=== PATIENT | female | born 1980 | race Caucasian/White ===

== ENCOUNTER → 2016-05-29 | Outpatient (CLI) | payer BC ==
--- NOTE | 2016-05-29 11:26 | US ---
May 29, [address] Jackson, Thank you for allowing us to see your patient regarding AMA. As you know she is a 35 year-old gravid a 1, para 0. Her due date is 10/17/16 which is based on 8 week u/s. Her current gestational age base d on this dating is 19 weeks 6 days. She had normal NIPT. Number of fetuses: 1 Placental location: posterior Cord Insertion: Central presentation: breech Cervix: 3.5 cm MVP: 3.5 cm The adnexa were evaluated. No pathology was seen. Right ovary seen Left ovary not seen Measurements: Biparietal diameter: 46 mm 20 weeks, 0 days Head circumference: 167 mm 19 weeks, 0 days Abdominal circumference: 152 mm 20 weeks, 3 days Femur length: 31 mm 19 weeks, 5 days Humerus length: 35 mm 21 weeks, 6 days Transcerebellar diameter: 21 mm 19 weeks, 6 days Average ultrasound age: 20 weeks, 0 days Estimated weight: 326 gm weight percentile: 54 % ANATOMY Upper extremities: Normal Lower extremities: Normal Supratentorial brain: Normal Lateral ventricle: 4.4 mm Posterior fossa: Normal Cisterna Magna: 4.7 mm Spine: Normal Nuchal fold: Normal Face: Normal nose, lip, profile, alveolar ridge Heart: Normal rate, rhythm, axis, 4 chamber view, LVOT, RVOT, IVS Stomach: Normal Diaphragm Normal Umbilical cord insertion: Normal Right kidney: Normal Left kidney: Normal Bladder: Normal Number of cord vessels: Three. Impression: This is a 35 year-old, 1, para 0 at 19 weeks, 6 days gestation. 1. SIUP with biometry cw ga of 19 weeks. Nl MVP. No anatomic abnormalities noted. 2. AMA - normal NIPT, I reviewed the detection rate and chromosomes for NIPT and the option of amnioc entesis as well. She declined amniocentesis today, understanding the limitations of NIPT and ultrasou nd in detection of aneuploidy and other syndromes. Thank you for allowing me to see your patient. Approximately 15 minutes was spent with the patient a nd 15 was spent discussing her issues. Cindy Yang MD Diagnosis Division of Maternal Medicine Department of Obstetrics and Gynecology [facility]
--- NOTE | 2016-05-29 18:25 | US ---
Detailed Obstetric Ultrasound Indication: Evaluate growth and anatomy. Advanced maternal age. Comparison: Baseline evaluation Dr. Cindy Yang was present during imaging. Findings: Biometry: Average gestational age by ultrasound: 20 weeks with EDC by ultrasound of October 16, 2016. Estimated gestational age by LMP: 19 weeks 6 days with an EDC by LMP of October 18, 2015. Maternal Ovaries: The right ovary is visualized and measures about 1.7 x 3 x 2.3 cm. The left ovary c ould not be positively identified. Number: 1 Presentation: Breech at this time Placental location: Posterior without previa. There is central umbilical cord insertion. Cervix: 3.5 cm from transabdominal measurement after voiding. Amniotic fluid maximum vertical pocket: 3.5 cm Biparietal diameter: 20 weeks, 4.60 cm Head circumference: 19 weeks 3 days, 16.71 cm Abdominal circumference: 20 weeks 3 days, 15.19 cm Femur length: 19 weeks 5 days, 3.12 cm Humerus length: 21 weeks 6 days, 3.45 cm Transcerebellar diameter: 19 weeks 6 days, 2.07 cm Estimated weight is 326 gms ( 12 ounces ). The estimated weight is at the 54th percentile based on LMP. Anatomy Survey: Supratentorial brain: Normal Posterior fossa: Normal Spine: Normal Nose and lips: Normal Profile: Normal Heart: Four chamber heart with normal interventricular septum heart rate of 142 bpm. RVOT: Normal LVOT: Normal Stomach: Normal Bowel: Normal echogenicity. Umbilical cord insertion: Normal Kidneys: Normal, no pyelectasis Bladder: Normal Number of cord vessels: Three Upper extremities: Normal Lower extremities: Normal Gender: Not documented Impression: 1. Living best in breech presentation at this time. 2. Size concordant with dates as detailed above. 3. Unremarkable anatomy. No anomalies detected.
== END ==
LOC: FIMAGING 09:32
PROVIDERS: ATTEND Obstetrics & Gynecology
DX: O09.522 Supervision of elderly multigravida, second trimester (principal); Z3A.19 19 weeks gestation of pregnancy